=== PATIENT | female | born 1980 | race Caucasian/White ===

== ENCOUNTER 2018-11-27 07:49 | Emergency (ER) | payer OTHER ==
[~2018-11-27] VITALS: Ht 172.7 cm; Wt 97.5 kg
== END 2018-11-27 10:14 | disposition home or self-care (01) ==
LOC: ED 07:49
DX: Z77.21 Contact with and (suspected) exposure to potentially hazardous body fluids (principal); S60.811D Abrasion of right wrist, subsequent encounter; F17.200 Nicotine dependence, unspecified, uncomplicated
CPT/HCPCS: 36415; 86703; 86704; 86706; 86803; 87340; 99283

== ENCOUNTER 2019-04-15 12:25 | Emergency (ER) | payer OTHER ==
[~2019-04-15] VITALS: Ht 172.7 cm; Wt 97.5 kg
== END 2019-04-15 13:50 | disposition home or self-care (01) ==
LOC: ED 12:25
DX: Z77.21 Contact with and (suspected) exposure to potentially hazardous body fluids (principal); Z88.0 Allergy status to penicillin
CPT/HCPCS: 36415; 86703; 99283